=== PATIENT | female | born 1985 | race African-American/Black ===

== ENCOUNTER 2023-11-18 13:20 | Emergency (ER) | payer MEDICAID ==
[~2023-11-18] VITALS: Ht 180.3 cm; Wt 139.6 kg
[2023-11-18 14:43] LABS: Urine Bacteria FEW /hpf (None Seen); Urine Blood Negative /uL (Negative); Urine Clarity HAZY (Clear); Urine Color Yellow (Yellow); Urine Protein, UAD Negative (Negative); Urine Urobilinogen Normal (Negative); Urine WBC 3 /hpf (0 - 5)
[2023-11-18 16:38] LABS: Basophils # (auto) 0 10 ^3/uL (0-0.2); Hemoglobin 10.5 g/dL (12.2-16.2); Lymphocytes # (auto) 2.4 10 ^3/uL (0.4-5.4)
[2023-11-18 16:40] LABS: Basophils % (auto) 0.4 % (0.0-2.0); Eosinophils # (auto) 0.2 10 ^3/uL (0-0.8); Eosinophils % (auto) 1.2 % (0.0-7.0); Hematocrit 35.1 % (36.0-46.0); Mean Corpuscular Hemoglobin 24.6 pg (28.0-32.0); Mean Corpuscular Volume 82.1 fL (80.0-100.0); Monocytes # (auto) 0.8 10 ^3/uL (0-1.3); Monocytes % (auto) 6.2 % (0.0-12.0); Neutrophils % (auto) 74.2 % (37.0-80.0); Red Blood Cells 4.28 10^6/uL (4.0-5.20); Red Cell Distribution Width 16.4 % (11.8-14.3); White Blood Cell 13.5 10^3/uL (4.4-10.8)
[2023-11-18 16:51] LABS: INR 1.23 (0.9-1.15); Prothrombin Time 12.7 sec (9.3-11.8)
[2023-11-18 17:02] LABS: Alanine Aminotransferase 20 U/L (7-40); Albumin 4.2 g/dL (3.2-4.8); Alkaline Phosphatase 61 U/L (46-116); Anion Gap 7 (5-15); Aspartate Aminotransferase 24 U/L (13-40); BUN/Creatinine Ratio 8.9 (10.0-20.0); Blood Urea Nitrogen 7 mg/dL (9-23); Calcium 9.2 mg/dL (8.5-10.1); Carbon Dioxide 24 mmol/L (20-30); Chloride 107 mmol/L (98-107); Glucose 83 mg/dL (74-106); Potassium 4.3 mmol/L (3.5-5.1); Sodium 138 mmol/L (136-145)
[2023-11-18 17:03] LABS: Bilirubin, Total 0.3 mg/dL (0.2-1.0); Total Protein 6.9 g/dL (5.7-8.2)
[2023-11-18 18:30] VITALS: BP 158/99; PULSE 99; RESP 18; TEMP 97.7; O2SAT 99
== END 2023-11-18 18:32 | disposition home or self-care (01) ==
LOC: ER 13:20
DX: I82.401 Acute embolism and thrombosis of unspecified deep veins of right lower extremity (principal); R60.0 Localized edema; Z88.8 Allergy status to other drugs, medicaments and biological substances
CPT/HCPCS: 36415; 80053; 81001; 83880; 85025; 85610; 93971

== ENCOUNTER 2024-12-28 11:54 | Inpatient (IN) | payer MEDICAID ==
[~2024-12-28] VITALS: Ht 180.3 cm; Wt 144.9 kg
--- NOTE | 2024-12-28 12:03 | ECG ---
[facility] Test Date: 2024-12-28 Test Time: 11:58:35 Pat Name: Darcy Vee Department: ER Room: 0279T Gender: F Ham Sawyer: BAYRON : 1985 Requested By: HARIS PORTER Order Number: [id number] Reading MD: Gold Solano Measurements Intervals [place] Rate: 104 P: 41 VT: 139 QRS: 30 QRSD: 125 T: 239 QT: 332 QTc: 437 Interpretive Statements Sinus tachycardia Ventricular premature complex Probable left atrial enlargement IVCD, consider atypical RBBB Probable inferior infarct, old Lateral leads are also involved Electronically Signed On 01-01-2025 21:50:12 PST by Gold Solano Please click the below link to view image of tracing.
--- NOTE | 2024-12-28 12:09 | ED.PDOC ---
HPI Comments Past medical history: IBS, HTN, DVT-in November 2023 Past surgical history: Hernia, gastric Sleeve, Bypass and Appendectomy Allergies: Cephalexin Family Hx: Heart disease. lorena: LAMONTE: Poor Historian. 39-year-old female sent for her PCP's office for evaluation of three day history of chest heaviness radiating to bilateral shoulder with the associated nausea and dizziness. Denies any fever shortness of breath. Denies any tobacco abuse. Patient has family history of coronary artery disease. No particular alleviating or precipitating factors. Patient is on Xarelto for history of DVT. Patient also states having some diarrhea without any fever or abdominal pain. REVIEW OF SYSTEMS: CONSTITUTIONAL: Denies acute: fever, diaphoresis, chills, generalized weakness. HEAD: Denies acute: headache, photophobia Eyes: Denies acute: Double vision, vision loss, eye pain, eye discharge. EARS: Denies acute: tinnitus, hearing loss, ear discharge, ear pain, THROAT: Denies acute: sore throat, swelling, difficulty swallowing , pain with swallowing, change in voice. NECK: Denies acute: neck pain, neck swelling, stiff neck. HEART: Denies acute : chest pain, palpitations, LUNGS: Denies acute: SOB, wheezing, cough, hemoptysis ABDOMEN: Denies acute: abdominal pain, , Vomiting, , melena , hematemesis, hematochezia SKIN: Denies acute: rash, redness, lesions, itchiness. EXTREMITIES: Denies acute: calf pain, numbness, tingling, weakness, denies pain in extremity. Denies acute: Low back pain. Neuro: Denies acute: focal neurological deficit, motor or sensory focal neurological deficit, tremors, seizure like activity, confusion, , change in mental status, loss of bowel or bladder function, cauda equina like symptoms. : Denies acute: dysuria, hematuria, flank pain, increase in urinary frequency. PSYCH: Denies acute: hallucination, suicidal ideation, homicidal ideation. FEMALE: Denies acute: abnormal vaginal bleeding, foul odor, unusual discharge. PHYSICAL EXAM: General: no acute distress, awake and alert. Head: normocephalic, atraumatic. Neck: supple, trachea is midline, no swelling. Throat: Normal phonation. Eyes:, no erythema, no purulent discharge, no proptosis, no icterus. Heart: regular rate, regular rhythm, no significant murmur appreciated. Lungs: no apparent respiratory distress, Able to speak in full sentences. No wheezing, no rhonchi, no crackles. No stridors Clear to auscultation bilaterally. Abdomen: non tender to palpation, non distended, soft, no guarding, no rebound, + bowel sounds. Obese Neuro: Awake, Alert, oriented to name, self, situation, follows commands GCS=15. Speech is normal. Skin: no petechia, no purpura, no cyanosis, non-pale, not jaundice. Lower extremities: --no - Pitting edema no deformity, no focal swelling, no calf TTP. Makes eye contact. moves all four extremities. Face: no apparent facial droop. Ambulating in the ED independently. ED COURSE: Time Seen by MD: 12:00 Primary Care Provider: Isauro Balderrama Notes: Nurses Notes, Allergies Allergies: Coded Allergies: Cephalexin (Verified Allergy, Unknown, 11/18/23) hyppotension rash Information Source: Patient Mode of Arrival: Ambulatory Severity: Moderate Timing: Days Duration: Since onset, Days Prehospital treatment: None Location: Substernal Radiation: Shoulder (R), Shoulder (L) Quality: Aching Onset: At Rest Cardiac Risk Factors: Family History, HTN PE Risk Factors: None History of: DVT/PE (in the past) Associated Signs and Symptoms: None Past Medical History PAST MEDICAL HISTORY: HTN Past Medical History (Other): DVT-in November of 2023, IBS Surgical History (Other): Hernia, gastric Sleeve, Bypass and Appendectomy MICROWAVE ENGINEER History: No Pertinent MICROWAVE ENGINEER History Family History Family History: Reviewed,noncontributory to illness, Family hx of heart cierra Social History Smoker: Non-Smoker Alcohol: Denies ETOH Use Drugs: Denies Drug Use Lives In: Home Was a procedure done? Was a procedure done?: No CP Differential Dx Differential Diagnosis: N/A Differential Diagnosis: Other (Ddx include but not limitied to gastritis, musculoskeletal pain, radiculopathy, atypical chest pain, dissection, aneurysm, ACS, unstable angina, hiatal hernia, GERD, anxiety, costochondritis, PE, pneumothroax, neoplasm, cardiac ischemia, drug abuse, anemia.) X-Ray, Labs, Meds, VS Vital Signs Date Time Temp Pulse Resp B/P (MAP) Pulse Ox O2 Delivery O2 Flow Rate FiO2 12/28/24 15:11 89 12/28/24 13:25 140/80 12/28/24 13:01 103 12/28/24 12:25 166/80 12/28/24 11:58 104 12/28/24 11:56 97.1 108 20 120/76 (91) 95 Lab Test 12/28/24 15:50 12/28/24 14:34 12/28/24 13:39 12/28/24 12:23 Range/Units Troponin I High Sensitivity < 3 L 3 L 3 L </=34 ng/L Sodium Level 137 136-145 mmol/L Potassium Level 2.5 *L 3.5-5.1 mmol/L Chloride Level 97 L 98-107 mmol/L Carbon Dioxide Level 29 20-31 mmol/L Anion Gap 11 5-15 Blood Urea Nitrogen 17 9-23 mg/dL Creatinine 1.42 H 0.550-1.02 mg/dL Glomerular Filtration Rate Calc 49 >90 mL/min BUN/Creatinine Ratio 12.0 10.0-20.0 Serum Glucose 107 H 74-106 mg/dL Lactic Acid Level 3.1 *H 3.5 *H 0.4-2.0 mmol/L Calcium Level 9.3 8.7-10.4 mg/dL Magnesium Level 1.8 1.6-2.6 mg/dL Total Bilirubin 0.4 0.2-1.0 mg/dL Aspartate Amino Transferase (AST) 25 13-40 U/L Alanine Aminotransferase (ALT) 21 7-40 U/L Alkaline Phosphatase 55 46-116 U/L Total Protein 6.9 5.7-8.2 g/dL Albumin 4.4 3.2-4.8 g/dL White Blood Count 21.9 H 4.4-10.8 10^3/uL Red Blood Count 4.58 4.0-5.20 10^6/uL Hemoglobin 14.0 12.2-16.2 g/dL Hematocrit 40.4 36.0-46.0 % Mean Corpuscular Volume 88.3 80.0-100.0 fL Mean Corpuscular Hemoglobin 30.5 28.0-32.0 pg Mean Corpuscular Hemoglobin Concent 34.5 32.0-36.0 g/dL Red Cell Distribution Width 16.7 H 11.8-14.3 % Platelet Count 492 H 140-450 10^3/uL Mean Platelet Volume 7.6 6.9-10.8 fL Neutrophils (%) (Auto) 73.3 37.0-80.0 % Lymphocytes (%) (Auto) 17.6 10.0-50.0 % Monocytes (%) (Auto) 6.3 0.0-12.0 % Eosinophils (%) (Auto) 2.4 0.0-7.0 % Basophils (%) (Auto) 0.4 0.0-2.0 % Neutrophils # (Auto) 16.0 H 1.6-8.6 10 ^3/uL Lymphocytes # (Auto) 3.9 0.4-5.4 10 ^3/uL Monocytes # (Auto) 1.4 H 0-1.3 10 ^3/uL Eosinophils # (Auto) 0.5 0-0.8 10 ^3/uL Basophils # (Auto) 0.1 0-0.2 10 ^3/uL Nucleated Red Blood Cells 0.0 % B-Type Natriuretic Peptide 12.55 0-100 pg/mL Test 12/28/24 12:03 Range/Units Urine Color Yellow Yellow Urine Clarity Turbid H Clear Urine pH 6.0 5.0-9.0 Urine Specific [place] 1.024 1.001-1.035 Urine Protein Trace H Negative Urine Ketones Negative Negative Urine Blood Negative Negative /uL Urine Nitrite Negative Negative Urine Bilirubin Negative Negative Urine Urobilinogen Normal Negative mg/dL Urine Leukocyte Esterase 1+ Negative /uL Urine RBC 7 0 - 4 /hpf Urine Microscopic WBC 19 H 0-5 /HPF Urine Squamous Epithelial Cells Mod <5 /hpf Urine Bacteria Few H None Seen /hpf Urine Hyaline Casts Many 0 - 2 /lpf Urine Mucus Few None Seen Urine Glucose Normal Normal mg/dL Urine Test Negative Negative Urine Opiates Screen Neg NEGATIVE Urine Fentanyl Screen Neg NEGATIVE Urine Barbiturates Screen Neg NEGATIVE Urine Phencyclidine Screen Neg NEGATIVE Urine Amphetamines Screen Neg NEGATIVE Urine Benzodiazepines Screen Neg NEGATIVE Urine Cocaine Screen Neg NEGATIVE Urine Cannabinoids Screen Pos NEGATIVE Current Medications Medications (Trade) Dose Ordered Sig/Rohit Route Start Time Stop Time Status Last Admin Aspirin (Ecotrin Enteric Coated Tablet) 325 mg ONCE ONCE PO 12/28/24 12:15 12/28/24 12:16 DC 12/28/24 12:24 Nitroglycerin (Ntrostat Sublingual) 0.4 mg ONCE ONCE SL 12/28/24 12:15 12/28/24 12:16 DC 12/28/24 12:25 Sodium Chloride 1,000 ml @ 1,000 mls/hr Q1H ONCE IV 12/28/24 13:45 12/28/24 14:44 DC 12/28/24 13:58 Piperacillin Sod/ Tazobactam Sod 100 ml @ 100 mls/hr ONCE ONCE IV 12/28/24 14:30 12/28/24 15:29 DC 12/28/24 14:50 Potassium Chloride (Klor-Con Tablet) 60 meq ONCE ONCE PO 12/28/24 15:30 12/28/24 16:08 DC 12/28/24 16:16 [place] [id number] Ph: [phone] DIAGNOSTIC IMAGING Diagnostic Imaging Report : [id number] Signed PATIENT: Darcy Vee ACCT: [id number] UNIT: [id number] : 1985 LOC: ER ROOM / BED: / AGE / SEX: 39 / F ADM STATUS: REG ER SERVICE 1200 ORDERING PHYSICIAN: HARIS PORTER DO PROCEDURE(s): CXRP - CHEST PORTABLE REASON: CP ORDER NUMBER(s): [id number], ACCESSION NUMBER(s): [id number] CHEST RADIOGRAPH Indication: CP Technique: Single frontal view of the chest was obtained COMPARISON: None FINDINGS: Lines and Tubes: None Lungs: Clear Pleura: No effusion. No pneumothorax. Cardiomediastinal contours: Unremarkable Bones: Unremarkable IMPRESSION: No acute disease. ATED BY: GUNNER JOSE MD DICTATED DATE/TIME: 12/28/24 1237 SIGNED BY: GUNNER JOSE MD SIGNED DATE/TIME: 12/28/24 1237 CC: Time of 1ST Reevaluation: 12:30 Reevaluation 1ST: Unchanged Time of 2ND Reevaluation: 12:57 (Chest pain improved after nitroglycerin sublingually) Reevaluation 2ND: Improved Patient Education/Counseling: Diagnosis, Treatment Family Education/Counseling: No Family Present Comments Patient presented with the above HPI.--cardiac----workup was initiated. patient was found with the above mentioned diagnosis. the following medications were ordered: please refer to order lists of meds and tests obtained by myself Dr. Porter. Patient ED course and VS have been stabilized. Patient has been reassessed in the ED and remained in a stable condition. Pertinent incidental findings were discussed with the patient and/or family. Patient/family voices understanding and is agreeable with plan. Patient has been observed in the ED adequate length of time to insure improvement/stability. Escalation of care considered: Consideration of escalation to observation or admission Patient was ADMITTED to the medicine team for further evaluation and treatment of their presentation. All the reports of any imaging studies that were ordered by myself were reviewed by myself. Departure 1 Departure Time of Disposition: 12:57 Impression: Primary Impression: Chest pain Additional Impressions: Leukocytosis UTI (urinary tract infection) Hypokalemia Disposition: ADMITTED INPATIENT Admit to: Tele Condition: Guarded Discharged With: Self Critical Care Note Critical Care Time?: Yes (35 min-critical care time only) Heart Score Heart Score: Heart Score Response (Comments) Value History Slightly Suspicious 0 EKG Normal 0 Age <45 0 Risk Factors >3 or Hx ASHD 2 Troponin Normal limit 0 Total 2 I personally scribed for HARIS PORTER DO ([email or web address]) on 12/28/24 at 12:09. Electronically submitted by Zi Wagner ([employer]). I personally scribed for HARIS PORTER DO ([email or web address]) on 12/28/24 at 12:15. Electronically submitted by Zi Wagner ([employer]). I personally scribed for HARIS PORTER DO ([email or web address]) on 12/28/24 at 17:31. Electronically submitted by Zi Wagner ([employer]). HARIS PORTER DO Dec 28, 2024 12:09
[2024-12-28] MEDS: ASPirin-EC 325mg tab PO ONE (12:24)
[2024-12-28] MEDS: NITROGLYCERIN 0.4 MG SL TAB SL ONE (12:25)
--- NOTE | 2024-12-28 12:40 | DVH ---
CHEST RADIOGRAPH Indication: CP Technique: Single frontal view of the chest was obtained COMPARISON: None FINDINGS: Lines and Tubes: None Lungs: Clear Pleura: No effusion. No pneumothorax. Cardiomediastinal contours: Unremarkable Bones: Unremarkable IMPRESSION: No acute disease.
[2024-12-28 12:45] LABS: Eosinophils # (auto) 0.5 10 ^3/uL (0-0.8)
[2024-12-28 12:47] LABS: Basophils # (auto) 0.1 10 ^3/uL (0-0.2); Basophils % (auto) 0.4 % (0.0-2.0); Eosinophils % (auto) 2.4 % (0.0-7.0); Hematocrit 40.4 % (36.0-46.0); Lymphocytes # (auto) 3.9 10 ^3/uL (0.4-5.4); Lymphocytes % (auto) 17.6 % (10.0-50.0); Mean Corpuscular Hemoglobin 30.5 pg (28.0-32.0); Mean Corpuscular Hgb Conc. 34.5 g/dL (32.0-36.0); Mean Corpuscular Volume 88.3 fL (80.0-100.0); Monocytes # (auto) 1.4 10 ^3/uL (0-1.3); Monocytes % (auto) 6.3 % (0.0-12.0); Neutrophils % (auto) 73.3 % (37.0-80.0); Platelet Count (auto) 492 10^3/uL (140-450); Red Blood Cells 4.58 10^6/uL (4.0-5.20); Red Cell Distribution Width 16.7 % (11.8-14.3); White Blood Cell 21.9 10^3/uL (4.4-10.8)
[2024-12-28 12:53] LABS: Urine Bacteria FEW /hpf (None Seen); Urine Blood Negative /uL (Negative); Urine Clarity Turbid (Clear); Urine Color Yellow (Yellow); Urine Hyaline Cast MANY /lpf (0 - 2); Urine Mucus FEW (None Seen); Urine Protein, UAD TRACE (Negative); Urine Specific Gravity 1.024 (1.001-1.035); Urine Squamous Epithelial Cell MOD /hpf (<5); Urine Urobilinogen Normal (Negative); Urine WBC 19 /HPF (0-5)
--- NOTE | 2024-12-28 13:02 | ECG ---
[facility] Test Date: 2024-12-28 Test Time: 13:01:07 Pat Name: Darcy Vee Department: ER Room: 0279T Gender: F Refuge Worker: MARGUERITE : 1985 Requested By: HARIS PORTER Order Number: [id number] Reading MD: Gold Solano Measurements Intervals [place] Rate: 103 P: 36 CA: 142 QRS: 11 QRSD: 118 T: 265 QT: 315 QTc: 413 Interpretive Statements Sinus tachycardia Ventricular premature complex Incomplete right bundle branch block Inferior infarct, age indeterminate Lateral leads are also involved Electronically Signed On 01-01-2025 21:50:50 PST by Gold Solano Please click the below link to view image of tracing.
[2024-12-28 13:12] LABS: Lactic Acid w/Reflex 3.5 mmol/L (0.4-2.0)
[2024-12-28 13:23] LABS: Amphetamine Screen, Urine Neg (NEGATIVE); Barbiturate Scree,Urine Neg (NEGATIVE); Benzodiazephine Screen, Urine Neg (NEGATIVE); Cannabinoid Screen, Urine Pos (NEGATIVE); Cocaine Screen, Urine Neg (NEGATIVE); Opiate Scree,Urine Neg (NEGATIVE); Phencyclidine Screen, Urine Neg (NEGATIVE)
[2024-12-28] MEDS: SODIUM CHLORIDE 0.9% 1,000 ML IV ONE (13:58)
[2024-12-28] MEDS: PIPERACILLIN-TAZOB 3.375GM 100 ML IV ONE (14:50)
[2024-12-28 15:11] LABS: Alanine Aminotransferase 21 U/L (7-40); Albumin 4.4 g/dL (3.2-4.8); Alkaline Phosphatase 55 U/L (46-116); Anion Gap 11 (5-15); Aspartate Aminotransferase 25 U/L (13-40); Bilirubin, Total 0.4 mg/dL (0.2-1.0); Blood Urea Nitrogen 17 mg/dL (9-23); Calcium 9.3 mg/dL (8.7-10.4); Carbon Dioxide 29 mmol/L (20-31); Magnesium 1.8 mg/dL (1.6-2.6); Sodium 137 mmol/L (136-145); Total Protein 6.9 g/dL (5.7-8.2)
--- NOTE | 2024-12-28 15:12 | ECG ---
[facility] Test Date: 2024-12-28 Test Time: 15:11:19 Pat Name: Darcy Vee Department: ER Room: 0279T Gender: F Transportation Services Representative: MARGUERITE : 1985 Requested By: HARIS PORTER Order Number: [id number] Reading MD: Gold Solano Measurements Intervals [place] Rate: 89 P: 18 ID: 140 QRS: 41 QRSD: 120 T: 14 QT: 404 QTc: 492 Interpretive Statements Sinus rhythm Multiple ventricular premature complexes IVCD, consider atypical RBBB Electronically Signed On 01-01-2025 21:51:22 PST by Gold Solano Please click the below link to view image of tracing.
[2024-12-28 15:16] LABS: Chloride 97 mmol/L (98-107); Glucose 107 mg/dL (74-106)
[2024-12-28 15:17] LABS: Potassium 2.5 mmol/L (3.5-5.1)
[2024-12-28] MEDS ORDERED: DOCUSATE SOD 100 MG CAP PO PRN (16:15)
[2024-12-28] MEDS ORDERED: ACETAMINOPHEN 325 MG TAB PO PRN (16:15)
[2024-12-28] MEDS ORDERED: MORPHINE SULFATE INJ 2 MG/ml SYRG IV PRN (16:15)
[2024-12-28] MEDS ORDERED: NITROGLYCERIN 0.4 MG SL TAB SL PRN (16:15)
[2024-12-28] MEDS: POTASSIUM CHL 20 Meq TABLET PO ONE (16:16)
[2024-12-28] MEDS: SODIUM CHLORIDE 0.9% 1,000 ML IV SCH (16:16)
[2024-12-28] MEDS ORDERED: hydrALAZINE HCL 20 MG/ML VL IV PRN (16:30)
--- NOTE | 2024-12-28 16:30 | DVHHP2 ---
History of Present Illness Reason for Visit: Urosepsis History of Present Illness 39-year-old female sent for her PCP's office for evaluation of three day history of chest heaviness radiating to bilateral shoulder with the associated nausea and dizziness, patient also reports some mild pain on urination. Denies any fever shortness of breath. Denies any tobacco abuse. Patient has family history of coronary artery disease. No particular alleviating or precipitating factors. Patient is on Xarelto for history of DVT in right lower extremity. Patient also states having some diarrhea without any fever or abdominal pain. Patient's UA shows UTI, WBCs 21., started on antibiotics, fluids, nausea and pain medication. Past Medical History DVT 5+ years ago per patient unsure of date. Hypertension, Past Surgical History Hernia, gastric Sleeve, Bypass and Appendectomy Family History Coronary artery disease on father's side Smoke: No ALCOHOL: none Drugs: None Lives: Alone Review of Systems Constitutional: Yes: Malaise; No: Fever, Chills, Sweats, Weakness, Other Eyes: No: Pain, Vision change, Conjunctivae inflammation, Eyelid inflammation, Other, Redness ENT: No: Ear pain, Ear discharge, Nose pain, Nose discharge, Nose congestion, Mouth pain, Mouth swelling, Throat pain, Throat swelling, Other Respiratory: No: Cough, Dry, Shortness of breath, SOB with excertion, Wheezing, Hemoptysis, Pleuritic Pain, Sputum, Wheezing, Other Cardiovascular: Chest Pain (Heaviness); No: Palpitations, Orthopnea, Paroxysmal Noc. Dyspnea, Edema, Lt Headedness, Other Gastrointestinal: Nausea, Diarrhea; No: Vomiting, Abdominal Pain, Constipation, Melena, Hematochezia, Other Genitourinary: Dysuria; No Frequency, No Incontinence, No Hematuria, No Retention, No Other Musculoskeletal: No: other, neck pain, shoulder pain, arm pain, back pain, hand pain, leg pain, foot pain Skin: No: Rash, Lesions, Jaundice, Bruising, Other Neurological: No: Weakness, Numbness, Incoordination, Change in speech, Confusion, Seizures, Other Allergies: Coded Allergies: Cephalexin (Verified Allergy, Unknown, 11/18/23) hyppotension rash Medications Current Medications Medications Dose Ordered Sig/Rohit Route Start Time Stop Time Status Last Admin Dose Admin Sodium Chloride 1,000 ml @ 100 mls/hr Q10H IV 12/28/24 16:15 12/28/24 16:16 100 MLS/HR Docusate Sodium 100 mg BIDPRN PRN PO 12/28/24 16:15 Acetaminophen 650 mg Q6HP PRN PO 12/28/24 16:15 Acetaminophen/ Hydrocodone Bitart 1 tab Q4HP PRN PO 12/28/24 16:15 Ondansetron HCl 4 mg Q4HP PRN IV 12/28/24 16:15 Morphine Sulfate 2 mg Q4HPRN PRN IV 12/28/24 16:15 Nitroglycerin 0.4 mg Q5MINP PRN SL 12/28/24 16:15 Morphine Sulfate 2 mg Q30M PRN IV 12/28/24 16:15 Piperacillin Sod/ Tazobactam Sod 100 ml @ 25 mls/hr Q8HR IV 12/28/24 22:00 UNV Exam Vital Signs Vital Signs Date Time Temp Pulse Resp B/P (MAP) Pulse Ox O2 Delivery O2 Flow Rate FiO2 12/28/24 15:11 89 12/28/24 13:25 140/80 12/28/24 11:56 97.1 20 95 General Appearance: Alert, Oriented X3, Cooperative, No acute distress, mild distress HEENT: Atraumatic, PERRLA, EOMI, Mucous membr. moist/pink Respiratory: Clear to auscultation, Normal air movement Cardiovascular: Regular rate, Normal S1, Normal S2, No murmurs Abdominal: Normal bowel sounds, Soft, No tenderness, No hepatospenomegaly, No masses Extremities: No clubbing, No cyanosis, No edema, Normal pulses, No tenderness/swelling Skin: No rashes, No breakdown, No significant lesion Neuro: Normal gait, Normal speech, Strength at 5/5 X4 ext, Normal tone, Sensation intact, Cranial nerves 3-12 NL, Reflexes 2+ Psych/Mental Status: Mental status NL, Mood NL Labs/Xrays Reviewed Labs Test 12/28/24 15:50 12/28/24 14:34 12/28/24 12:23 12/28/24 12:03 Range/Units Sodium Level 137 136-145 mmol/L Potassium Level 2.5 *L 3.5-5.1 mmol/L Chloride Level 97 L 98-107 mmol/L Carbon Dioxide Level 29 20-31 mmol/L Anion Gap 11 5-15 Blood Urea Nitrogen 17 9-23 mg/dL Creatinine 1.42 H 0.550-1.02 mg/dL Glomerular Filtration Rate Calc 49 >90 mL/min BUN/Creatinine Ratio 12.0 10.0-20.0 Serum Glucose 107 H 74-106 mg/dL Lactic Acid Level 3.1 *H 0.4-2.0 mmol/L Calcium Level 9.3 8.7-10.4 mg/dL Magnesium Level 1.8 1.6-2.6 mg/dL Total Bilirubin 0.4 0.2-1.0 mg/dL Aspartate Amino Transferase (AST) 25 13-40 U/L Alanine Aminotransferase (ALT) 21 7-40 U/L Alkaline Phosphatase 55 46-116 U/L Total Protein 6.9 5.7-8.2 g/dL Albumin 4.4 3.2-4.8 g/dL White Blood Count 21.9 H 4.4-10.8 10^3/uL Red Blood Count 4.58 4.0-5.20 10^6/uL Hemoglobin 14.0 12.2-16.2 g/dL Hematocrit 40.4 36.0-46.0 % Mean Corpuscular Volume 88.3 80.0-100.0 fL Mean Corpuscular Hemoglobin 30.5 28.0-32.0 pg Mean Corpuscular Hemoglobin Concent 34.5 32.0-36.0 g/dL Red Cell Distribution Width 16.7 H 11.8-14.3 % Platelet Count 492 H 140-450 10^3/uL Mean Platelet Volume 7.6 6.9-10.8 fL Neutrophils (%) (Auto) 73.3 37.0-80.0 % Lymphocytes (%) (Auto) 17.6 10.0-50.0 % Monocytes (%) (Auto) 6.3 0.0-12.0 % Eosinophils (%) (Auto) 2.4 0.0-7.0 % Basophils (%) (Auto) 0.4 0.0-2.0 % Neutrophils # (Auto) 16.0 H 1.6-8.6 10 ^3/uL Lymphocytes # (Auto) 3.9 0.4-5.4 10 ^3/uL Monocytes # (Auto) 1.4 H 0-1.3 10 ^3/uL Eosinophils # (Auto) 0.5 0-0.8 10 ^3/uL Basophils # (Auto) 0.1 0-0.2 10 ^3/uL Nucleated Red Blood Cells 0.0 % B-Type Natriuretic Peptide 12.55 0-100 pg/mL Urine Color Yellow Yellow Urine Clarity Turbid H Clear Urine pH 6.0 5.0-9.0 Urine Specific [place] 1.024 1.001-1.035 Urine Protein Trace H Negative Urine Ketones Negative Negative Urine Blood Negative Negative /uL Urine Nitrite Negative Negative Urine Bilirubin Negative Negative Urine Urobilinogen Normal Negative mg/dL Urine Leukocyte Esterase 1+ Negative /uL Urine RBC 7 0 - 4 /hpf Urine Microscopic WBC 19 H 0-5 /HPF Urine Squamous Epithelial Cells Mod <5 /hpf Urine Bacteria Few H None Seen /hpf Urine Hyaline Casts Many 0 - 2 /lpf Urine Mucus Few None Seen Urine Glucose Normal Normal mg/dL Urine Test Negative Negative Urine Opiates Screen Neg NEGATIVE Urine Fentanyl Screen Neg NEGATIVE Urine Barbiturates Screen Neg NEGATIVE Urine Phencyclidine Screen Neg NEGATIVE Urine Amphetamines Screen Neg NEGATIVE Urine Benzodiazepines Screen Neg NEGATIVE Urine Cocaine Screen Neg NEGATIVE Urine Cannabinoids Screen Pos NEGATIVE Assessment/Plan Assessment/Plan Urosepsis Admit to telemetry Blood Cultures drawn UA positive for WBCs and bacteria- pt notes dysuria Zosyn started IV Fluids trend lactic acid- trending down Hypokalemia Potassium supplement given Pre Check labs Chronic benign essential hypertension Continue Procardia Hydralazine p.r.n. Anxiety Continue hydroxyzine Depression Continue bupropion DVT hx Continue Sulaiman Is a poor historian and is unsure how often she takes these medications, once nursing updates then I can edit, please notify me once these are updated in the med rec. Plan discussed with: Patient My Orders Orders - YUDITH CHAPIN Procedure Category Date Status Time Admit ADMIT 12/28/24 Transmitted 16:05 Code Status CODE 12/28/24 Transmitted 16:05 Vital Signs ROSE 12/28/24 In Process 16:05 Review Orders With ROSE 12/28/24 In Process Adm. 16:05 Bedrest With Bathroom ROSE 12/28/24 In Process Privileg 16:05 Regular Diet DIET 12/28/24 Transmitted Dinner Sodium Chloride 0.9% PHA 12/28/24 In Process 16:15 Docusate Sodium PHA 12/28/24 In Process Capsule (Colace 16:15 Acetaminophen Tablet PHA 12/28/24 In Process (Tylenol Tablet) 16:15 Notify Md Of Changes [facility] 12/28/24 In Process From Base 16:05 Advance Directive ROSE 12/28/24 In Process 16:05 Basic Metabolic Panel LAB 12/29/24 Verified 04:00 Complete Blood Count LAB 12/29/24 Verified 04:00 Patient Condition ORDERS 12/28/24 Transmitted 16:05 Allergies ROSE 12/28/24 In Process 16:05 Hydrocodone-Acet PHA 12/28/24 In Process 5/325mg Tab ([place] 16:15 Ondansetron Hcl PHA 12/28/24 In Process (Zofran) 16:15 Morphine Sulfate PHA 12/28/24 In Process Injection 16:15 Nitroglycerin PHA 12/28/24 In Process Sublingual (Ntrostat 16:15 Morphine Sulfate PHA 12/28/24 In Process Injection 16:15 Stat Ekg For Chest ROSE 12/28/24 In Process Pain 16:05 Notify Md Of Changes ROSE 12/28/24 In Process From Base 16:05 Micromatic Hone Operator For ROSE 12/28/24 In Process 24 Hours 16:05 Emergency Dysrhythmia ROSE 12/28/24 In Process Protocol 16:05 Rhythm Strips Once ORSE 12/28/24 In Process Every Shift 16:05 Oxygen By Nasal RT 12/28/24 Transmitted Cannula 16:05 Document Home Meds ED NURSING 12/28/24 Transmitted Get List Of Home ORDERS 12/28/24 Transmitted Medications 16:07 Piperacillin-Tazob PHA 12/28/24 Logged 3.375gm (Zosyn 3.375g 22:00 Date of Service: Dec 28, 2024 Billing Provider: YUDITH CHAPIN Common Visit Codes: [id number] INP/OBS CARE(HIGH) YUDITH CHAPIN Dec 28, 2024 16:30
[2024-12-28] MEDS: NIFEdipine 10 MG CAP PO SCH (17:17)
[2024-12-28] MEDS: buPROPion HCL 75 MG TAB PO SCH (19:38)
[2024-12-28 20:28] VITALS: RESP 16; O2SAT 96
[2024-12-28 21:30] VITALS: BP 99/60; PULSE 90; RESP 20; TEMP 98; O2SAT 95
[2024-12-28 21:46] VITALS: BP 99/60; PULSE 73; RESP 18; TEMP 98; O2SAT 96
[2024-12-28 21:48] VITALS: BP 99/60; PULSE 73; RESP 18; TEMP 98; O2SAT 96
[2024-12-28 23:00] VITALS: RESP 18; O2SAT 98
[2024-12-28] MEDS: PIPERACILLIN-TAZOB 3.375GM 100 ML IV SCH (23:14)
[2024-12-28] MEDS: hydrOXYzine 25 MG TAB or CAP PO SCH (23:14)
[2024-12-29] VITALS (9 sets, daily range): BP systolic 97–118; BP diastolic 44–67; PULSE 74–100; RESP 18–22; TEMP 97.5–98.3; O2SAT 92–98
[2024-12-29 03:50] LABS: Basophils # (auto) 0.1 10 ^3/uL (0-0.2); Basophils % (auto) 0.6 % (0.0-2.0); Eosinophils # (auto) 0.2 10 ^3/uL (0-0.8); Eosinophils % (auto) 1.4 % (0.0-7.0); Hematocrit 40.2 % (36.0-46.0); Hemoglobin 13.2 g/dL (12.2-16.2); Lymphocytes # (auto) 3.4 10 ^3/uL (0.4-5.4); Lymphocytes % (auto) 24.7 % (10.0-50.0); Mean Corpuscular Hgb Conc. 32.7 g/dL (32.0-36.0); Mean Corpuscular Volume 88.5 fL (80.0-100.0); Monocytes # (auto) 1.1 10 ^3/uL (0-1.3); Monocytes % (auto) 7.7 % (0.0-12.0); Neutrophils # (auto) 9.1 10 ^3/uL (1.6-8.6); Neutrophils % (auto) 65.6 % (37.0-80.0); Nucleated Red Blood Cells % 0.1 %; Platelet Count (auto) 369 10^3/uL (140-450); Red Blood Cells 4.54 10^6/uL (4.0-5.20); Red Cell Distribution Width 17.5 % (11.8-14.3); White Blood Cell 13.9 10^3/uL (4.4-10.8)
[2024-12-29] MEDS: HYDROcodone-ACET 5/325MG TAB PO PRN (04:01)
[2024-12-29 04:13] LABS: Chloride 99 mmol/L (98-107)
[2024-12-29 04:14] LABS: Anion Gap 13 (5-15); Carbon Dioxide 27 mmol/L (20-31); Sodium 139 mmol/L (136-145)
[2024-12-29 04:20] LABS: BUN/Creatinine Ratio 14.3 (10.0-20.0); Blood Urea Nitrogen 18 mg/dL (9-23); Glucose 85 mg/dL (74-106)
[2024-12-29 04:30] LABS: Potassium 2.5 mmol/L (3.5-5.1)
[2024-12-29] MEDS: POTASSIUM CHL 20 Meq TABLET PO ONE (05:10)
[2024-12-29] MEDS: PIPERACILLIN-TAZOB 3.375GM 100 ML IV SCH (08:33)
[2024-12-29] MEDS: RIVAROXABAN 10 MG TAB PO SCH (09:24)
[2024-12-29] MEDS: ONDANSETRON HCL 4 MG/2 ML VIAL IV PRN (09:25)
--- NOTE | 2024-12-29 13:21 | DVHPN2 ---
Subjective I am assuming the care of the patient from today onwards who was under the care of the hospitalist team. Most of the history obtained from at bedside as per direction from the patient.. Detailed sign out obtained from the hospitalist team. 39-year-old female with a known history of multiple abdominal surgeries in 2019 as per including gastric sleeve/appendectomy, multiple hernia repair who initially presented to the hospital with the chest pain and heaviness found to have urinary tract infection with sepsis. Reviewed: Care Plan Changes from previous H/P or p: No Changes Eyes: No Pain, No Vision change, No Conjunctivae inflammation, No Eyelid inflammation, No Other, No Redness ENT: No Ear pain, No Ear discharge, No Nose pain, No Nose discharge, No Nose congestion, No Mouth pain, No Mouth swelling, No Throat pain, No Throat swelling, No Other Cardiovascular: Chest Pain (Heaviness); No Palpitations, No Orthopnea, No Paroxysmal Noc. Dyspnea, No Edema, No Lt Headedness, No Other Respiratory: No Cough, No Dry, No Shortness of breath, No SOB with excertion, No Wheezing, No Hemoptysis, No Pleuritic Pain, No Sputum, No Other Gastrointestinal: Nausea; No Vomiting, No Abdominal Pain; Diarrhea; No Constipation, No Melena, No Hematochezia, No Other Genitourinary: Dysuria; No Frequency, No Incontinence, No Hematuria, No Retention, No Other Musculoskeletal: No other, No neck pain, No shoulder pain, No arm pain, No back pain, No hand pain, No leg pain, No foot pain Skin: No Rash, No Lesions, No Jaundice, No Bruising, No Other Objective Vitals Vital Signs Date Time Temp Pulse Resp B/P (MAP) Pulse Ox O2 Delivery O2 Flow Rate FiO2 12/29/24 09:00 97.6 89 20 106/53 (70) 98 97.6 12/29/24 08:30 Room Air* 0 21 Intake/Output Intake and Output 12/29/24 07:00 Intake Total 1100 ml Balance 1100 ml IV Total 1100 ml Medications Current Medications Medications Dose Ordered Sig/Rohit Route Start Time Stop Time Status Last Admin Dose Admin Sodium Chloride 1,000 ml @ 100 mls/hr Q10H IV 12/28/24 16:15 12/28/24 23:14 100 MLS/HR Docusate Sodium 100 mg BIDPRN PRN PO 12/28/24 16:15 Acetaminophen 650 mg Q6HP PRN PO 12/28/24 16:15 Acetaminophen/ Hydrocodone Bitart 1 tab Q4HP PRN PO 12/28/24 16:15 12/29/24 09:26 1 TAB Ondansetron HCl 4 mg Q4HP PRN IV 12/28/24 16:15 12/29/24 09:25 4 MG Morphine Sulfate 2 mg Q4HPRN PRN IV 12/28/24 16:15 Nitroglycerin 0.4 mg Q5MINP PRN SL 12/28/24 16:15 Morphine Sulfate 2 mg Q30M PRN IV 12/28/24 16:15 Nifedipine 10 mg DAILY PO 12/28/24 16:30 12/28/24 17:22 10 MG Hydroxyzine Pamoate 25 mg HS PO 12/28/24 22:00 12/28/24 23:14 25 MG Bupropion HCl 150 mg BID@07,19 PO 12/28/24 19:00 12/29/24 05:58 150 MG Rivaroxaban 10 mg DAILY PO 12/29/24 10:00 12/29/24 09:24 10 MG Hydralazine HCl 10 mg Q6HP PRN IV 12/28/24 16:30 Piperacillin Sod/ Tazobactam Sod 100 ml @ 25 mls/hr Q8H IV 12/29/24 08:00 12/29/24 08:33 25 MLS/HR Laboratory Results Laboratory Tests 12/29/24 03:34 12/29/24 06:20 Chemistry Test 12/28/24 14:34 12/29/24 03:34 Albumin 4.4 g/dL (3.2-4.8) Calcium Level 9.3 mg/dL (8.7-10.4) 9.0 mg/dL (8.7-10.4) Magnesium Level 1.8 mg/dL (1.6-2.6) Total Protein 6.9 g/dL (5.7-8.2) LFT Test 12/28/24 14:34 Alanine Aminotransferase (ALT) 21 U/L (7-40) Alkaline Phosphatase 55 U/L (46-116) Aspartate Amino Transferase (AST) 25 U/L (13-40) Total Bilirubin 0.4 mg/dL (0.2-1.0) Urinalysis Test 12/28/24 12:03 Urine Color Yellow (Yellow) Urine Clarity Turbid (Clear) H Urine pH 6.0 (5.0-9.0) Urine Specific [place] 1.024 (1.001-1.035) Urine Protein Trace (Negative) H Urine Ketones Negative (Negative) Urine Blood Negative /uL (Negative) Urine Nitrite Negative (Negative) Urine Bilirubin Negative (Negative) Urine Urobilinogen Normal mg/dL (Negative) Urine Leukocyte Esterase 1+ /uL (Negative) Urine RBC 7 /hpf (0 - 4) Urine Microscopic WBC 19 /HPF (0-5) H Urine Squamous Epithelial Cells Mod /hpf (<5) Urine Bacteria Few /hpf (None Seen) H Urine Hyaline Casts Many /lpf (0 - 2) Urine Mucus Few (None Seen) Urine Glucose Normal mg/dL (Normal) Urine Test Negative (Negative) Assessment/Plan Assessment/Plan 39-year-old female with a known history of multiple abdominal surgeries in 2020 as per including gastric sleeve/appendectomy, multiple hernia repair who initially presented to the hospital with the chest pain and heaviness found to have urinary tract infection with sepsis. 1. Chest pain rule out acute LA 2. Sepsis secondary to UTI 3. UTI 4. Lactic acidosis 5. Leukocytosis 6. Previous history of multiple abdominal surgeries, records probably at [facility] as per -continue IV antibiotics, IV hydration, repeat lactate history level, follow up on the urine culture -2D echo, cardiology consultation. Plan discussed with: Patient, Spouse My Orders Orders - RUTHANN ALCALA MD Procedure Category Date Status Time Potassium Chloride PHA 12/29/24 In Process (Potassium Chloride). 12:00 Echo 2d Mode Cardiac US 12/29/24 Logged DOP 11:58 Urine Bacterial HOMAR 12/29/24 Logged Culture 11:58 Lactic Acid W/ Reflex LAB 12/29/24 Logged Order 11:58 Complete Blood Count LAB 12/30/24 Verified 04:00 Comprehensive LAB 12/30/24 Verified Metabolic Panel 04:00 * Cardiology Consult CONS 12/29/24 Transmitted 11:58 Date of Service: Dec 29, 2024 Billing Provider: RUTHANN ALCALA MD Common Visit Codes: [id number] INP/OBS CARE(MOD) RUTHANN ALCALA MD Dec 29, 2024 13:21
[2024-12-29] MEDS: POTASSIUM EFFERVESENT TAB 25 MEQ PO ONE (14:17)
--- NOTE | 2024-12-29 15:10 | DVHSR ---
APPROVED REPORT EXAM: Two-dimensional and M-mode echocardiogram with Doppler and color Doppler. Blood Pressure: 106/53 mmHg INDICATION Chest Pain RISK FACTORS Obesity: Height: 6'11, Weight: 273 DIMENSIONS LVDd4.5 (3.8-5.7cm)LA (2D)3.6 (1.9-4.0cm)Aortic Root3.2 (2.0-3.7cm) LVDs3.1 (2.5-4.0cm)LA (MM) (1.9-4.0cm)Aortic Cusp Exc2.2 (1.5-2.0cm) EF (%) 55.0 (55-70%)Rt. Atrium3.3 (1.9-4.0cm)Asc. Aorta3.3 cm IVSd1.3 (0.7-1.1cm)RV (D)4.5 (1.8-2.4cm) PWd1.0 (0.7-1.1cm) Mitral Valve MitralMitral Stenosis E wave1.05m/sMV Mean GR.mmHg A wave1.08m/sMV Peak GR.mmHg E/A ratio1.02D MVAcm2 DECEL [id number] 1/2 Timems Aortic Valve Aortic ValveAortic Stenosis V11.28m/Ranjit Mean GR.4mmHg V21.35m/Ranjit Peak GR.7mmHg LVOT Diameter2.4 (1.8-2.4cm)Doppler AVA4.29cm2 Pulmonic Valve V20.97m/s Conclusion lvef 65% by visual estimate RV normal funcion normal atria no severe valve abnormalities noted
[2024-12-29] MEDS: POTASSIUM CHLORIDE 40 MEQ, LIDOCAINE 1% (LOCAL ANESTH.) 4 ML in SODIUM CHL 0.9% 250 ML IV ONE (15:34)
--- NOTE | 2024-12-29 15:40 | DVHINCON2 ---
KATIA TILLEY AGACNP 12/29/24 1540: Date Seen: Dec 29, 2024 Referring Physician [place] Reason for Consultation Chest Pain History of Present Illness 39-year-old female with PMH for morbid obesity, right lower extremity DVT on Xarelto, gastric sleeve, multiple hernia repair, presented to the hospital with chest pain. Patient states that chest pain is right-sided upper shoulder area and feels like it crosses her whole anterior chest to the left side, pressure in nature, constant at times intermittent, no aggravating or relieving factors. Patient endorses that she has been feeling sick with nausea vomiting and diarrhea for 1 week prior that has not subsided but then started to feel the chest pressure for the last couple of days. Patient also endorses dizziness especially when standing up. Upon evaluation in the ER patient's troponin trending negative, UA shows UTI, WBC 21, lactate 3.5, BNP negative. Initial creatinine 1.42, K 2.5. UDS positive for cannabinoids. EKG reviewed and shows sinus tachycardia 103 beats per minute, PVC, incomplete RBBB, lateral ST and T-wave abnormality. Past Medical History HTN Gastirc Sleeve Morbid Obesity RLE DVT Lymphedema Past Surgical History Multiple abdominal surgeries for hernia repair and gastric sleeve. Family History: Colon cancer G8 FATHER Social History Denies alcohol or tobacco use, positive for cannabinoid. Allergies: Coded Allergies: Cephalexin (Verified Allergy, Unknown, 11/18/23) hyppotension rash Current Medications Current Medications Medications (Trade) Dose Ordered Sig/Rohit Route PRN Reason Start Time Stop Time Status Last Admin Sodium Chloride 1,000 ml @ 100 mls/hr Q10H IV 12/28/24 16:15 12/28/24 23:14 Docusate Sodium (Colace Capsule) 100 mg BIDPRN PRN PO FOR CONSTIPATION 12/28/24 16:15 Acetaminophen (Tylenol Tablet) 650 mg Q6HP PRN PO PAIN SCALE 1-3 OR TEMP>100.4 12/28/24 16:15 Acetaminophen/ Hydrocodone Bitart ([place] 5/325MG Tab) 1 tab Q4HP PRN PO MODERATE PAIN (4-6 PAIN SCALE) 12/28/24 16:15 12/29/24 09:26 Ondansetron HCl (Zofran) 4 mg Q4HP PRN IV NAUSEA / VOMITING 12/28/24 16:15 12/29/24 09:25 Morphine Sulfate 2 mg Q4HPRN PRN IV SEVERE PAIN (7-10 PAIN SCALE) 12/28/24 16:15 Nitroglycerin (Ntrostat Sublingual) 0.4 mg Q5MINP PRN SL FOR CHEST PAIN 12/28/24 16:15 Morphine Sulfate 2 mg Q30M PRN IV FOR CHEST PAIN 12/28/24 16:15 Piperacillin Sod/ Tazobactam Sod 100 ml @ 25 mls/hr Q8HR IV 12/28/24 22:00 12/29/24 05:15 DC 12/28/24 23:14 Nifedipine (Procardia Capsule) 10 mg DAILY PO 12/28/24 16:30 12/28/24 17:22 Hydroxyzine Pamoate (Vistaril Oral) 25 mg HS PO 12/28/24 22:00 12/28/24 23:14 Bupropion HCl (Wellbutrin Tablet) 150 mg BID@07,19 PO 12/28/24 19:00 12/29/24 05:58 Rivaroxaban (Xarelto Tablet) 10 mg DAILY PO 12/29/24 10:00 12/29/24 09:24 Hydralazine HCl (Apresoline Injection) 10 mg Q6HP PRN IV SBP>150 12/28/24 16:30 Piperacillin Sod/ Tazobactam Sod 100 ml @ 25 mls/hr Q8H IV 12/29/24 08:00 12/29/24 08:33 Review of Systems Constitutional: No: Fever, Chills, Sweats, Weakness, Malaise, Other Eyes: No: Pain, Vision change, Conjunctivae inflammation, Eyelid inflammation, Other, Redness ENT: No: Ear pain, Ear discharge, Nose pain, Nose discharge, Nose congestion, Mouth pain, Mouth swelling, Throat pain, Throat swelling, Other Respiratory: No: Cough, Dry, Shortness of breath, SOB with exertion, Wheezing, Hemoptysis, Pleuritic Pain, Sputum, Wheezing, Other Cardiovascular: ; No: Palpitations, Orthopnea, Paroxysmal Noc. Dyspnea, , Lt Headedness, Other positive: Edema Chest Pain Gastrointestinal: No: , Constipation, Melena, Hematochezia, Other positive: Nausea, Vomiting, Abdominal Pain, Diarrhea Genitourinary: No Dysuria, No Frequency, No Incontinence, No Hematuria, No Retention, No Other Musculoskeletal: neck pain; No: other, shoulder pain, arm pain, back pain, hand pain, leg pain, foot pain Skin: No: Rash, Lesions, Jaundice, Bruising, Other Neurological: Other (Dizziness, headache.); No: Weakness, Numbness, Incoordination, Change in speech, Confusion, Seizures Vital Signs Vital Signs Date Time Temp Pulse Resp B/P (MAP) Pulse Ox O2 Delivery O2 Flow Rate FiO2 12/29/24 13:00 98.3 100 20 118/45 (69) 95 98.3 12/29/24 08:30 Room Air* 0 21 Physical Exam General appearance: Patient is well-developed, well-nourished, in no acute distress. HEENT: Exam shows: Normocephalic, atraumatic, PERRLA, EOMI Neck: Supple, no bruits Chest: Equal chest excursion bilaterally. Breath sounds normal-no rales or w heezes. Heart: Rhythm: Regular rate; no murmur or gallop Abdomen: Exam shows: Soft, nontender, nondistended Musculoskeletal: No clubbing, no cyanosis, + lower extremity edema Dermatology: Skin warm, moist. Neurological: Exam shows: Alert and oriented x4, normal speech Available prior records, labs, EKG, rhythm strips reviewed and interpreted Labs/Diagnostic Data Labs Test 12/29/24 13:05 12/29/24 06:20 12/29/24 03:34 12/28/24 15:50 Range/Units Lactic Acid Level 3.0 *H 0.4-2.0 mmol/L Potassium Level 2.6 L 3.5-5.1 mmol/L White Blood Count 13.9 #H 4.4-10.8 10^3/uL Red Blood Count 4.54 4.0-5.20 10^6/uL Hemoglobin 13.2 12.2-16.2 g/dL Hematocrit 40.2 36.0-46.0 % Mean Corpuscular Volume 88.5 80.0-100.0 fL Mean Corpuscular Hemoglobin 29.0 28.0-32.0 pg Mean Corpuscular Hemoglobin Concent 32.7 32.0-36.0 g/dL Red Cell Distribution Width 17.5 H 11.8-14.3 % Platelet Count 369 140-450 10^3/uL Mean Platelet Volume 7.1 6.9-10.8 fL Neutrophils (%) (Auto) 65.6 37.0-80.0 % Lymphocytes (%) (Auto) 24.7 10.0-50.0 % Monocytes (%) (Auto) 7.7 0.0-12.0 % Eosinophils (%) (Auto) 1.4 0.0-7.0 % Basophils (%) (Auto) 0.6 0.0-2.0 % Neutrophils # (Auto) 9.1 H 1.6-8.6 10 ^3/uL Lymphocytes # (Auto) 3.4 0.4-5.4 10 ^3/uL Monocytes # (Auto) 1.1 0-1.3 10 ^3/uL Eosinophils # (Auto) 0.2 0-0.8 10 ^3/uL Basophils # (Auto) 0.1 0-0.2 10 ^3/uL Nucleated Red Blood Cells 0.1 % Sodium Level 139 136-145 mmol/L Chloride Level 99 98-107 mmol/L Carbon Dioxide Level 27 20-31 mmol/L Anion Gap 13 5-15 Blood Urea Nitrogen 18 9-23 mg/dL Creatinine 1.26 H 0.550-1.02 mg/dL Glomerular Filtration Rate Calc 56 >90 mL/min BUN/Creatinine Ratio 14.3 10.0-20.0 Serum Glucose 85 74-106 mg/dL Calcium Level 9.0 8.7-10.4 mg/dL Troponin I High Sensitivity < 3 L </=34 ng/L Test 12/28/24 14:34 12/28/24 12:23 12/28/24 12:03 Range/Units Magnesium Level 1.8 1.6-2.6 mg/dL Total Bilirubin 0.4 0.2-1.0 mg/dL Aspartate Amino Transferase (AST) 25 13-40 U/L Alanine Aminotransferase (ALT) 21 7-40 U/L Alkaline Phosphatase 55 46-116 U/L Total Protein 6.9 5.7-8.2 g/dL Albumin 4.4 3.2-4.8 g/dL B-Type Natriuretic Peptide 12.55 0-100 pg/mL Urine Color Yellow Yellow Urine Clarity Turbid H Clear Urine pH 6.0 5.0-9.0 Urine Specific [place] 1.024 1.001-1.035 Urine Protein Trace H Negative Urine Ketones Negative Negative Urine Blood Negative Negative /uL Urine Nitrite Negative Negative Urine Bilirubin Negative Negative Urine Urobilinogen Normal Negative mg/dL Urine Leukocyte Esterase 1+ Negative /uL Urine RBC 7 0 - 4 /hpf Urine Microscopic WBC 19 H 0-5 /HPF Urine Squamous Epithelial Cells Mod <5 /hpf Urine Bacteria Few H None Seen /hpf Urine Hyaline Casts Many 0 - 2 /lpf Urine Mucus Few None Seen Urine Glucose Normal Normal mg/dL Urine Test Negative Negative Urine Opiates Screen Neg NEGATIVE Urine Fentanyl Screen Neg NEGATIVE Urine Barbiturates Screen Neg NEGATIVE Urine Phencyclidine Screen Neg NEGATIVE Urine Amphetamines Screen Neg NEGATIVE Urine Benzodiazepines Screen Neg NEGATIVE Urine Cocaine Screen Neg NEGATIVE Urine Cannabinoids Screen Pos NEGATIVE Assessment Chest pain Urosepsis Hypokalemia Lightheadedness HTN HX DVT Morbid obesity Plan/Recommendation * Atypical chest pain, Troponins trending negative, EKG with nonspecific ST and T-wave abnormality. Follow up echo with preserved LV and RV function, no significant valvular structural abnormalities noted. ACS ruled out. * Monitoring replace electrolytes * JARAD - likely in setting of dehydration, improving with IV hydration. * Orthostatic vital signs * Continue on IV antibiotics. * Continue on DVT anticoagulation therapy Xarelto. Case Discussed with Dr Mai. ACS ruled out. Atypical chest pain. Normal EF on echo. No further cardiac workup indicated at this time. If symptoms progress recommend outpatient follow-up for CT coronary angiogram. We will sign off, please reconsult or call for any questions thank you. Critical care, time spent: 37 minutes This medical document was created using an electronic medical record system with voice recognition software and computerized dictation system. Although this document has been carefully reviewed, there might still be some phonetic and typographical errors. Occasional wrong-word or ``sound-alike substitutions may have occurred due to the inherent limitations of voice recognition software. These areas are purely typographical due to imperfections of the software programs and do not reflect any compromise in the patient's medical care. Please read the chart carefully and recognize, using context, where these substitutions have occurred. Thank you for allowing me to participate in the management of this patient. The treatment plan was discussed with and agreed upon by patient/family including requesting consultants and ordering of imaging/procedures. Plan discussed with: Patient, Other (Mother) NYHA Physical activity limitations: NA Date of Service: Dec 29, 2024 Billing Provider: KATIA TILLEY Cardiology Common Codes: [id number] INP/OBS CARE (High), [id number] CARE 30-74 MIN STEFANI MAI MD 12/30/24 0718: Family History: Colon cancer G8 FATHER Allergies: Coded Allergies: Cephalexin (Verified Allergy, Unknown, 11/18/23) hyppotension rash Plan/Recommendation normal echo tx UTI signing off trops are - KATIA TILLEY Dec 29, 2024 15:40 STEFANI MAI MD Dec 30, 2024 07:18
[2024-12-29] MEDS: MORPHINE SULFATE INJ 2 MG/ml SYRG IV PRN (17:33)
[2024-12-30] VITALS (7 sets, daily range): BP systolic 103–133; BP diastolic 52–82; PULSE 77–87; RESP 18–20; TEMP 36.7; O2SAT 95–97
[2024-12-30 07:18] LABS: Basophils # (auto) 0 10 ^3/uL (0-0.2); Basophils % (auto) 0.4 % (0.0-2.0); Eosinophils # (auto) 0.3 10 ^3/uL (0-0.8); Eosinophils % (auto) 3.1 % (0.0-7.0); Hematocrit 33.9 % (36.0-46.0); Hemoglobin 11.1 g/dL (12.2-16.2); Lymphocytes # (auto) 2.4 10 ^3/uL (0.4-5.4); Mean Corpuscular Hemoglobin 29.2 pg (28.0-32.0); Mean Corpuscular Hgb Conc. 32.7 g/dL (32.0-36.0); Mean Corpuscular Volume 89.2 fL (80.0-100.0); Monocytes # (auto) 0.8 10 ^3/uL (0-1.3); Monocytes % (auto) 7.5 % (0.0-12.0); Neutrophils # (auto) 6.6 10 ^3/uL (1.6-8.6); Nucleated Red Blood Cells % 0.2 %; Platelet Count (auto) 357 10^3/uL (140-450); Red Cell Distribution Width 17.2 % (11.8-14.3); White Blood Cell 10.1 10^3/uL (4.4-10.8)
[2024-12-30 07:46] LABS: Albumin 3.4 g/dL (3.2-4.8); Anion Gap 12 (5-15); Bilirubin, Total 0.3 mg/dL (0.2-1.0); Carbon Dioxide 26 mmol/L (20-31); Chloride 101 mmol/L (98-107); Glucose 84 mg/dL (74-106); Sodium 139 mmol/L (136-145)
[2024-12-30 07:53] LABS: BUN/Creatinine Ratio 10.6 (10.0-20.0)
[2024-12-30 07:59] LABS: Alanine Aminotransferase 20 U/L (7-40); Alkaline Phosphatase 38 U/L (46-116); Aspartate Aminotransferase 42 U/L (13-40); Blood Urea Nitrogen 10 mg/dL (9-23); Calcium 8.6 mg/dL (8.7-10.4); Potassium 3.3 mmol/L (3.5-5.1); Total Protein 5.4 g/dL (5.7-8.2)
[2024-12-30] MEDS: POTASSIUM CHL 20 Meq TABLET PO ONE (16:27)
[2024-12-30] MEDS: AMOXICILLIN/CLAVUL 875 MG TAB PO ONE (16:27)
[2024-12-30] MEDS ORDERED: AUG875T PO (17:05)
--- NOTE | 2024-12-30 17:08 | DVHDS2 ---
Discharge Summary Date of Admission Dec 28, 2024 at 16:05 Date of Discharge: Dec 30, 2024 Labs/Diagnostic Data: Laboratory Results Test 12/30/24 06:41 12/29/24 15:18 12/28/24 15:50 12/28/24 14:34 White Blood Count 10.1 10^3/uL (4.4-10.8) Red Blood Count 3.80 10^6/uL (4.0-5.20) Hemoglobin 11.1 g/dL (12.2-16.2) Hematocrit 33.9 % (36.0-46.0) Mean Corpuscular Volume 89.2 fL (80.0-100.0) Mean Corpuscular Hemoglobin 29.2 pg (28.0-32.0) Mean Corpuscular Hemoglobin Concent 32.7 g/dL (32.0-36.0) Red Cell Distribution Width 17.2 % (11.8-14.3) Platelet Count 357 10^3/uL (140-450) Mean Platelet Volume 7.0 fL (6.9-10.8) Neutrophils (%) (Auto) 65.0 % (37.0-80.0) Lymphocytes (%) (Auto) 24.0 % (10.0-50.0) Monocytes (%) (Auto) 7.5 % (0.0-12.0) Eosinophils (%) (Auto) 3.1 % (0.0-7.0) Basophils (%) (Auto) 0.4 % (0.0-2.0) Neutrophils # (Auto) 6.6 10 ^3/uL (1.6-8.6) Lymphocytes # (Auto) 2.4 10 ^3/uL (0.4-5.4) Monocytes # (Auto) 0.8 10 ^3/uL (0-1.3) Eosinophils # (Auto) 0.3 10 ^3/uL (0-0.8) Basophils # (Auto) 0 10 ^3/uL (0-0.2) Nucleated Red Blood Cells 0.2 % Sodium Level 139 mmol/L (136-145) Potassium Level 3.3 mmol/L (3.5-5.1) Chloride Level 101 mmol/L (98-107) Carbon Dioxide Level 26 mmol/L (20-31) Anion Gap 12 (5-15) Blood Urea Nitrogen 10 mg/dL (9-23) Creatinine 0.94 mg/dL (0.550-1.02) Glomerular Filtration Rate Calc 80 mL/min (>90) BUN/Creatinine Ratio 10.6 (10.0-20.0) Serum Glucose 84 mg/dL (74-106) Calcium Level 8.6 mg/dL (8.7-10.4) Total Bilirubin 0.3 mg/dL (0.2-1.0) Aspartate Amino Transferase (AST) 42 U/L (13-40) Alanine Aminotransferase (ALT) 20 U/L (7-40) Alkaline Phosphatase 38 U/L (46-116) Total Protein 5.4 g/dL (5.7-8.2) Albumin 3.4 g/dL (3.2-4.8) Lactic Acid Level 2.2 mmol/L (0.4-2.0) Troponin I High Sensitivity < 3 ng/L (</=34) Magnesium Level 1.8 mg/dL (1.6-2.6) Test 12/28/24 12:23 12/28/24 12:03 B-Type Natriuretic Peptide 12.55 pg/mL (0-100) Urine Color Yellow (Yellow) Urine Clarity Turbid (Clear) Urine pH 6.0 (5.0-9.0) Urine Specific [place] 1.024 (1.001-1.035) Urine Protein Trace (Negative) Urine Ketones Negative (Negative) Urine Blood Negative /uL (Negative) Urine Nitrite Negative (Negative) Urine Bilirubin Negative (Negative) Urine Urobilinogen Normal mg/dL (Negative) Urine Leukocyte Esterase 1+ /uL (Negative) Urine RBC 7 /hpf (0 - 4) Urine Microscopic WBC 19 /HPF (0-5) Urine Squamous Epithelial Cells Mod /hpf (<5) Urine Bacteria Few /hpf (None Seen) Urine Hyaline Casts Many /lpf (0 - 2) Urine Mucus Few (None Seen) Urine Glucose Normal mg/dL (Normal) Urine Test Negative (Negative) Urine Opiates Screen Neg (NEGATIVE) Urine Fentanyl Screen Neg (NEGATIVE) Urine Barbiturates Screen Neg (NEGATIVE) Urine Phencyclidine Screen Neg (NEGATIVE) Urine Amphetamines Screen Neg (NEGATIVE) Urine Benzodiazepines Screen Neg (NEGATIVE) Urine Cocaine Screen Neg (NEGATIVE) Urine Cannabinoids Screen Pos (NEGATIVE) Other Laboratory Tests 2/23/25 06:41 Brief Hx & Hospital Course: 39-year-old female with a known history of multiple abdominal surgeries in 2019 as per including gastric sleeve/appendectomy, multiple hernia repair who initially presented to the hospital with the chest pain and heaviness found to have urinary tract infection with sepsis. Patient was treated with the IV antibiotics. Patient also had lactic acidosis suspected secondary to dehydration as well as leukocytosis. The both her resolved. Patient is currently being discharged under stable condition on p.o. antibiotics for next three days. Patient was recommended to follow up with the PCP within one week with a repeat BMP. Plan of care discussed with the patient patient's and other family member at bedside they are understanding and verbalized understanding and agreeable to plan. Patient's has a morbid obesity class three, diet weight reduction and exercise counseling has been discussed. Condition at Discharge: Stable Final Diagnosis/Problems List 1. Chest pain ruled out acute NV 2. Sepsis secondary to UTI 3. UTI 4. Lactic acidosis improved 5. Leukocytosis, resolved 6. Previous history of multiple abdominal surgeries, records probably at 7. Morbid obesity class three, diet weight reduction and exercise counseling. [facility] Discharge Disposition: Home SNF Discharge Will this Physician continue t: No Discharge Instruct/Medications Diet: Cardiac 2g Na,low cholest Activity: No Restrictions, As Tolerated Follow Up/Referral: Follow up with the PCP in one week with a repeat BMP to make sure Medications: Augmentin as prescribed Discharge Statement: "Patient was advised to return to the ER or call 911 if any headaches, dizziness, shortness of breath, chest pain, abdominal pain, bleeding, fevers, or worsening of medical condition. Patient was counseled about treatment plan, medications, possible side effects, patientverbalized understanding. All questions were answered to the best of my ability. This discharge took greater then 30 minutes in planning, reviewing documentation, counseling the patient, and discussing with other team members." ASSESSMENT ASSESSMENT Assessment 1. Chest pain ruled out acute NV 2. Sepsis secondary to UTI 3. UTI 4. Lactic acidosis improved 5. Leukocytosis, resolved 6. Previous history of multiple abdominal surgeries, records probably at [facility] Date of Service: Dec 30, 2024 Billing Provider: RUTHANN ALCALA MD Common Visit Codes: [id number] DISCH DAY >30min RUTHANN ALCALA MD Dec 30, 2024 17:08
[2024-12-30 18:42] LABS: Lactic Acid w/Reflex 2.3 mmol/L (0.4-2.0)
[2024-12-30] MEDS ORDERED: AMOXICILLIN/CLAVUL 875 MG TAB PO SCH (22:00)
== END 2024-12-30 19:20 | disposition home or self-care (01) | DRG 720 ==
LOC: ER 11:54 → OVERFLOW 16:05 → TELE-WESTW 12-29 06:16
PROVIDERS: ADMIT Internal Medicine; ATTEND Internal Medicine
DX: A41.9 Sepsis, unspecified organism (principal); N17.0 Acute kidney failure with tubular necrosis; E87.20 Acidosis, unspecified; E86.0 Dehydration; E66.01 Morbid (severe) obesity due to excess calories; I10 Essential (primary) hypertension; E87.6 Hypokalemia; N39.0 Urinary tract infection, site not specified; F41.9 Anxiety disorder, unspecified; F32.A Depression, unspecified; Z88.8 Allergy status to other drugs, medicaments and biological substances; Z90.49 Acquired absence of other specified parts of digestive tract; Z86.718 Personal history of other venous thrombosis and embolism; Z82.49 Family history of ischemic heart disease and other diseases of the circulatory system; Z68.38 Body mass index [BMI] 38.0-38.9, adult
CPT/HCPCS: 36415; 71045; 80048; 80053; 80307; 81001; 81025; 83605; 83735; 83880; 84132; 84484; 85025; 87040; 93005; 93306; 96361; 96365; 96366; 99291; G0378; J2003; J2405; J2543